=== PATIENT | female | born 1990 | race African-American/Black ===

== ENCOUNTER 2016-08-11 02:28 | Emergency (ER) | payer OTHER ==
[~2016-08-11] VITALS: Ht 180.3 cm; Wt 81.2 kg
[2016-08-11 02:35] VITALS: BP 114/74; PULSE 77; RESP 18; TEMP 97.6; O2SAT 98
--- NOTE | 2016-08-11 02:40 | NUR ---
Placed in room 07 . Placed on electronic device monitor, blood pressure machine and pulse oximeter. To gown for exam. Side rails up. Report given to ATTILA Jones.
--- NOTE | 2016-08-11 02:53 | NUR ---
Patient to ER C/O severe throat pain "for the past month" patient states that she has been sick for a month with "some fever, some cough." AAOx4, red tonsils with mild inflammation, unlabored breathing, clear lungs, no signs of acute distress.
--- NOTE | 2016-08-11 03:12 | NUR ---
ER at bedside examining patient.
[2016-08-11 03:28] VITALS: BP 118/72; PULSE 73; RESP 16; TEMP 97.9; O2SAT 99
--- NOTE | 2016-08-11 03:28 | NUR ---
Patient given written and verbal discharge instructions and verbalizes understanding. ER MD Ayon discussed with patient the results and treatment provided. Patient in stable condition. ID arm band removed. Rx of amoxicillin, chloraseptic, tylenol given. Patient educated on pain management and to follow up with PMD. Pain Scale 0/10. Opportunity for questions provided and answered.
== END 2016-08-11 03:28 | disposition home or self-care (01) ==
LOC: SED 02:28
DX: J31.2 Chronic pharyngitis (principal); F17.200 Nicotine dependence, unspecified, uncomplicated
CPT/HCPCS: 99283